=== PATIENT | female | born 1945 | race Caucasian/White ===

== ENCOUNTER → 2016-10-13 | Outpatient (CLI) | payer BC ==
[~2016-10-13] MED LIST: ALBUAER2 INH; CHOL100027 PO; MOME220A INH; MULT-884 PO; OMEG5CAP PO; POLYSOL OPB; [UNRECOGNIZED DRUG - OTHER] OPB
--- NOTE | 2016-10-13 13:44 | DIAGNOSTIC IMAGING REPORT ---
ULTRASOUND LEFT LOWER EXTREMITY VENOUS CLINICAL HISTORY: Left leg pain. COMPARISON STUDY: Bilateral lower extremity venous ultrasound dated 01/08/2016. TECHNIQUE: Real-time, grayscale, and color Doppler sonography of the deep veins of the left lower extremity was performed from the inguinal crease to the calf. Compression and augmentation were utilized. FINDINGS: There is no sonographic evidence of deep venous thrombosis identified in the left lower extremity. The common femoral, superficial femoral, and popliteal veins are patent and normally compressible. The greater saphenous vein and the profunda femoris vein at the junction with the common femoral vein are clear. The visualized calf veins are patent. Superficial venous varicosities are noted in the distal thigh. A small popliteal cyst measures 5.4 x 1.1 x 3.1 cm. IMPRESSION: 1. There is no sonographic evidence of deep venous thrombosis identified in the left lower extremity. 2. A small popiteal cyst is noted. Electronically signed by: Chandler Chan M.D. 10/13/2016 1:42 PM Dictated Date/Time: 10/13/2016 1:41 PM
== END | disposition home or self-care (01) ==
LOC: C.ULTR 13:04
PROVIDERS: ATTEND Family Medicine
DX: M25.562 Pain in left knee (principal); M71.22 Synovial cyst of popliteal space [Baker], left knee

== ENCOUNTER → 2016-10-13 | Outpatient (CLI) | payer BC ==
--- NOTE | 2016-10-13 12:07 | DIAGNOSTIC IMAGING REPORT ---
LEFT KNEE 1 OR 2 VIEWS ROUTINE CLINICAL HISTORY: KNEE PAIN LEFT COMPARISON: None. DISCUSSION: The bones and joint spaces appear intact. There is no evidence of fracture, dislocation or bony disease. There is no evidence for soft tissue swelling. IMPRESSION: Negative study. Electronically signed by: Manolo Hernandez M.D. 10/13/2016 12:05 PM Dictated Date/Time: 10/13/2016 12:05 PM
== END | disposition home or self-care (01) ==
LOC: C.RAD1850 11:48
PROVIDERS: ATTEND Family Medicine
DX: M25.562 Pain in left knee (principal)

== ENCOUNTER → 2017-02-06 | Outpatient (CLI) | payer BC ==
[2017-02-06 09:51] LABS: BLOOD UREA NITROGEN 20 mg/dl (7-18); BUN/CREATININE RATIO 27.1 (10-20); CARBON DIOXIDE 29 mmol/L (21-32); CHLORIDE 107 mmol/L (98-107); CREATININE 0.73 mg/dl (0.60-1.20); GLUCOSE 101 mg/dl (70-99); POTASSIUM 4.2 mmol/L (3.5-5.1); SODIUM 141 mmol/L (136-145)
[2017-02-06 10:01] LABS: CHOLESTEROL 223 mg/dl (0-200); CHOLESTEROL/HDL RATIO 3.3; HDL CHOLESTEROL 68 mg/dl; LDL CHOLESTEROL CALCULATED 127 mg/dl; TRIGLYCERIDES 139 mg/dl (0-150); VERY LOW DENSITY LIPOPROT CALC 28 mg/dl
[2017-02-06 12:26] LABS: ESTIMATED AVERAGE GLUCOSE 114 mg/dl; HA1C FLAG Normal (Normal)
== END | disposition home or self-care (01) ==
LOC: C.LAB1850 08:12
PROVIDERS: ATTEND Internal Medicine
DX: E78.5 Hyperlipidemia, unspecified (principal); R73.01 Impaired fasting glucose

== ENCOUNTER → 2017-03-03 | Outpatient (CLI) | payer BC | END | disposition home or self-care (01) | LOC: C.MAMM 08:54 | PROVIDERS: ATTEND Internal Medicine | DX: M85.89 Other specified disorders of bone density and structure, multiple sites (principal) ==

== ENCOUNTER → 2017-12-15 | Outpatient (CLI) | payer BC ==
--- NOTE | 2017-12-16 15:23 | MAMMOGRAPHY REPORT ---
BILATERAL DIGITAL SCREENING MAMMOGRAM TOMOSYNTHESIS WITH CAD: 12/15/2017 CLINICAL HISTORY: Routine screening. Patient has no complaints. TECHNIQUE: Breast tomosynthesis in addition to standard 2D mammography was performed. Current study was also evaluated with a Computer Aided Detection (CAD) system. COMPARISON: Comparison is made to exams dated: 06/23/2016 mammogram, 03/19/2015 mammogram, 08/18/2013 mammogram, 07/07/2012 mammogram, 03/28/2011 mammogram, and 03/27/2010 mammogram - [facility]. BREAST COMPOSITION: There are scattered areas of fibroglandular density in both breasts. FINDINGS: There are stable asymmetries in the lateral aspect of each breast. Scattered benign-appear ing coarse calcifications. No suspicious mass, architectural distortion or cluster of microcalcifica tions is seen. IMPRESSION: ACR BI-RADS CATEGORY 1: NEGATIVE There is no mammographic evidence of malignancy. A 1 year screening mammogram is recommended. The pa tient will receive written notification of the results. Approximately 10% of breast cancers are not detected with mammography. A negative mammographic report should not delay biopsy if a clinically suggestive mass is present. Billie Cardoza M.D. ay/:12/15/2017 16:02:10 Floor Clerk: Jaki REIS(Karen)(M), [facility] letter sent: Normal 1/2 BI-RADS Code: ACR BI-RADS Category 1: Negative
== END | disposition home or self-care (01) ==
LOC: C.MAMM 11:46
PROVIDERS: ATTEND Obstetrics & Gynecology
DX: Z12.31 Encounter for screening mammogram for malignant neoplasm of breast (principal)

== ENCOUNTER 2020-11-09 14:58 | Observation (INO) ==
--- NOTE | 2020-11-09 16:23 | Emergency Department Note ---
History of Present Illness General Chief complaint: Dizziness Stated complaint: DIZZINESS,WEAKNESS IN LT LEG, REF BY DOC Time Seen by Provider: 11/09/20 16:06 Source: patient History of Present Illness Provider complaint: Dizziness Onset (ago): week(s) Location: head Severity: moderate Pain Consistency: + intermittent Quality: + other (Lightheadedness) Relieved By: + none Exacerbated By: + other (Standing) Associated symptoms: + headaches (Occasional headaches none now) and + weakness (In left leg starting yesterday at 11 AM); no chest pain, no cough, no fever/ch ills, no nausea/vomiting and no shortness of breath This is a 75-year-old female who presents with dizziness starting 7 days ago. The patient describes the dizziness as feeling very lightheaded. Initially 7 days ago she felt so lightheaded that she almost passed out. The next day she felt better but still had the lightheadedness especially when she tries to stand. No associated fever, cough or cold symptoms, chest pain, shortness of breath, abdominal pain, vomiting, diarrhea or urinary symptoms. The patient does state that yesterday at 11 AM she noticed that her left leg felt weak and had the sensation that it was sliding. She states that she still feels weak and feels very off balance when she walks. She denies any numbness or weakness in the other extremities. She has no new numbness in the left lower extremity. She states that she has had foot fractures in the past and has had some numbness to the foot in the past which is unchanged. She denies any change in vision, difficulty swallowing or problems with her speech. She does state that she feels like when she is thinking about something it is true haze. Home Medications Medication Instructions Recorded Confirmed Type albuterol sulfate 90 mcg/actuation 1 puffs INH Q6H PRN 03/16/19 11/09/20 History aerosol inhaler multivitamin 1 tab PO DAILY 03/16/19 11/09/20 History fluticasone propionate [Flonase 1 spray INTRANASAL [id number] PRN 11/09/20 11/09/20 History Allergy Relief] lodoxamide tromethamine 1 drp OPB QID 11/09/20 11/09/20 History mometasone [Asmanex Twisthaler] 1 inh INHALATION DAILY 11/09/20 11/09/20 History Allergies Allergy/AdvReac Type Severity Reaction Status Date / Time adhesive tape Allergy Verified 11/09/20 18:53 codeine AdvReac Mild GI distress Verified 11/09/20 18:53 Past Med/Surg History Medical History (Updated 11/09/20 @ 18:10 by Micah Felton MD) Angioma Fatigue Hyperlipidemia Left knee DJD Osteopenia Postinflammatory hyperpigmentation Solar lentigo Venous insufficiency Vitamin D deficiency Surgical History No significant past surgical history Family History Mother COPD (chronic obstructive pulmonary disease) Breast cancer Father Diabetes Hypertension Coronary heart disease Daughter Malignant melanoma of skin Malignant Melanoma Of The Skin Denies family history of Ovarian cancer Prostate cancer Myocardial infarction Colorectal cancer Social History Smoking Status: Never smoker Second Hand Exposure: Yes; Hx Alcohol Use: Yes Alcohol type: wine Hx Substance Use: No Preferred Language: Uzbek Communication Ability: Effective Visual Impairment: Partially Limited Hearing Ability: Normal Beliefs That Will Affect Care: None marital status: Current Living Situation: Spouse current occupational status: other current occupation: legal collector How many Children do You have: 2 How many Children do You have Comment: 1 boy 1 girl Feels Safe at Home: Yes Childhood Exposure to Second-Hand Smoke: Yes during the past year weight has: remained stable Dental Care, Regularly: Yes Physical Activity Frequency: 5-6 Times per Week Seatbelt Use: always Sunscreen Use: Yes Review of Systems See HPI for pertinent positives & negatives. and A total of 10 systems reviewed and were otherwise negative Physical Exam Vital Signs Vital Signs - 24 hr 11/09/20 15:02 11/09/20 16:57 11/09/20 18:43 Temperature 36.8 C Temperature Source Skin Pulse Rate - Lying 70 Pulse Rate - Sitting 74 Pulse Rate - Standing 76 Pulse Rate 80 Pulse Rate [Bilateral Apical] Respiratory Rate 20 18 Respiratory Effort / Characteristics Non-Labored Spontaneous Non-Labored Respiratory Depth Normal Normal Respiratory Pattern Regular Regular Blood Pressure - Lying 178/72 H Blood Pressure - Sitting 183/82 H Blood Pressure- Standing 159/92 H Blood Pressure 188/89 H Blood Pressure [Left Arm] 196/98 H Blood Pressure Mean 122 Blood Pressure Mean [Left Arm] 130 Blood Pressure Position [Left Arm] Lying Pulse Oximetry 97 98 Oxygen Delivery Method Room Air Room Air Sepsis Recent Fever Within 48 Hours No Sepsis New/Unexplained Change in Mental Status N/A Sepsis Action Taken by Nursing No Action Required 11/09/20 19:05 Temperature Temperature Source Pulse Rate - Lying Pulse Rate - Sitting Pulse Rate - Standing Pulse Rate Pulse Rate [Bilateral Apical] 73 Respiratory Rate 20 Respiratory Effort / Characteristics Respiratory Depth Respiratory Pattern Blood Pressure - Lying Blood Pressure - Sitting Blood Pressure- Standing Blood Pressure Blood Pressure [Left Arm] 196/77 H Blood Pressure Mean Blood Pressure Mean [Left Arm] 116 Blood Pressure Position [Left Arm] Pulse Oximetry 98 Oxygen Delivery Method Sepsis Recent Fever Within 48 Hours Sepsis New/Unexplained Change in Mental Status Sepsis Action Taken by Nursing Constitutional: Vital signs reviewed. Eyes: Pupils are equal round reactive to light. Conjunctiva are noninjected. ENT: Pharynx is clear without erythema or exudate. Mucous membranes are moist. Neck supple without meningeal signs. Respiratory: Clear to auscultation bilaterally. Breath sounds are equal bila terally. Cardiovascular: Regular rate and rhythm. No rubs or gallops. GI: Soft, nondistended and nontender. Bowel sounds are present. Musculoskeletal: No peripheral edema. No lower extremity tenderness. Integumentary: No cyanosis. or jaundice. Neurologic: The patient is awake and alert. Cranial nerves II-XII are intact. Motor is 5 out of 5 all extremities except the left lower extremity which is 4 out of 5. Sensation is intact to light touch all extremities. Normal speech. No pronator drift. No limb ataxia. Gait favoring left leg. Psychiatric: Anxious. Course Administered Medications Discontinued Medications Aspirin (Aspirin Chew 324 Mg) 324 mg PO NOW STA Stop: 11/09/20 18:10 Last Admin: 11/09/20 18:34 Dose: 324 mg Documented by: [id number] Ioversol (Optiray 320 125ml) 119 ml IV ONCE ONE Stop: 11/09/20 17:34 Last Admin: 11/09/20 17:33 Dose: 119 ml Documented by: [id number] Medical Decision Making Differential Diagnosis CVA, TIA, intracranial mass, intracranial hemorrhage, metabolic derangement Medical Records Attestation: I reviewed the patient's medical records. I did perform a limited focused review of portions of the patient's old chart on the electronic medical record. The patient has had no recent pertinent visits to this hospital. Home Medications Current Medication List: was personally reviewed by me Laboratory Data Attestation: I reviewed the patient's lab results. Result diagrams: 11/09/20 16:34 11/09/20 16:34 Lab Results 11/09/20 11/09/20 11/09/20 Range/Units 16:34 16:34 16:34 WBC 7.26 (4.8-10.8) K/uL RBC 4.68 (4.2-5.4) M/uL Hgb 14.2 (12.0-16.0) g/dL Hct 42.5 (37-47) % MCV 90.8 (80-100) fL MCH 30.3 (25-34) pg MCHC 33.4 (32-36) g/dL RDW Std Deviation 46.0 (36.4-46.3) fL RDW Coeff of Alyce 13.9 (11.5-14.5) % Plt Count 272 (130-400) K/uL MPV 9.8 (7.4-10.4) fL Immature Gran % (Auto) 0.3 % Neut % (Auto) 64.5 % Lymph % (Auto) 25.5 % Gregory % (Auto) 7.3 % Eos % (Auto) 2.1 % Baso % (Auto) 0.3 % Neut # (Auto) 4.69 (1.4-6.5) K/uL Lymph # (Auto) 1.85 (1.2-3.4) K/uL Gregory # (Auto) 0.53 (0.11-0.59) K/uL Eos # (Auto) 0.15 (0-0.5) K/uL Baso # (Auto) 0.02 (0-0.2) K/uL Immature Gran # (Auto) 0.02 (0.00-0.02) K/uL PT 9.9 (9.0-12.0) Seconds INR 1.0 (0.9-1.1) APTT 25.5 (21.0-31.0) Seconds PTT Ratio 1.0 Sodium (136-145) mmol/L Potassium (3.5-5.1) mmol/L Chloride (98-107) mmol/L Carbon Dioxide (21-32) mmol/L Anion Gap (3-11) BUN (7-18) mg/dl Creatinine (0.6-1.2) mg/dl Est Cr Clr Drug Dosing ml/min Est GFR ( Amer) Est GFR (Non-Af Amer) BUN/Creatinine Ratio (10-20) Glucose (70-99) mg/dl Calcium (8.5-10.1) mg/dl Magnesium (1.8-2.4) mg/dl Total Bilirubin (0.2-1) mg/dl AST (15-37) U/L ALT (12-78) U/L Alkaline Phosphatase (45-117) U/L Troponin I (0-0.045) ng/ml Total Protein (6.4-8.2) gm/dl Albumin (3.4-5.0) gm/dl Globulin (2.5-4.0) gm/dl Albumin/Globulin Ratio (0.9-2) Urine Color Urine Appearance (Clear) Urine pH (4.5-7.5) Ur Specific [place] (1.000-1.030) Urine Protein (Negative) Urine Glucose (UA) (Negative) Urine Ketones (Negative) Urine Blood (Negative) Urine Nitrite (Negative) Urine Bilirubin (Negative) Urine Urobilinogen (Negative) Ur Leukocyte Esterase (Negative) Urine WBC (Auto) (0-5) /hpf Urine RBC (Auto) (0-4) /hpf U Hyaline Cast (Auto) (0-5) /lpf U Epithel Cells (Auto) (0-5) /lpf Urine Bacteria (Auto) (Negative) COVID-19 Eval Order SARS-CoV-2 (PCR) (Negative) Influenza Type A (PCR) (Neg) Influenza Type B (PCR) (Neg) RSV (RT-PCR) (Neg) Blood Type A Positive Antibody Screen NEGATIVE 11/09/20 11/09/20 11/09/20 Range/Units 16:34 16:50 16:50 WBC (4.8-10.8) K/uL RBC (4.2-5.4) M/uL Hgb (12.0-16.0) g/dL Hct (37-47) % MCV (80-100) fL MCH (25-34) pg MCHC (32-36) g/dL RDW Std Deviation (36.4-46.3) fL RDW Coeff of Alyce (11.5-14.5) % Plt Count (130-400) K/uL MPV (7.4-10.4) fL Immature Gran % (Auto) % Neut % (Auto) % Lymph % (Auto) % Gregory % (Auto) % Eos % (Auto) % Baso % (Auto) % Neut # (Auto) (1.4-6.5) K/uL Lymph # (Auto) (1.2-3.4) K/uL Gregory # (Auto) (0.11-0.59) K/uL Eos # (Auto) (0-0.5) K/uL Baso # (Auto) (0-0.2) K/uL Immature Gran # (Auto) (0.00-0.02) K/uL PT (9.0-12.0) Seconds INR (0.9-1.1) APTT (21.0-31.0) Seconds PTT Ratio Sodium 141 (136-145) mmol/L Potassium 3.8 (3.5-5.1) mmol/L Chloride 107 (98-107) mmol/L Carbon Dioxide 30 (21-32) mmol/L Anion Gap 4.0 (3-11) BUN 20 H (7-18) mg/dl Creatinine 0.71 (0.6-1.2) mg/dl Est Cr Clr Drug Dosing 69.9 ml/min Est GFR ( Amer) 97.9 Est GFR (Non-Af Amer) 84.5 BUN/Creatinine Ratio 27.9 H (10-20) Glucose 88 (70-99) mg/dl Calcium 9.1 (8.5-10.1) mg/dl Magnesium 2.4 (1.8-2.4) mg/dl Total Bilirubin 0.5 (0.2-1) mg/dl AST 29 (15-37) U/L ALT 44 (12-78) U/L Alkaline Phosphatase 63 (45-117) U/L Troponin I 0.021 (0-0.045) ng/ml Total Protein 7.8 (6.4-8.2) gm/dl Albumin 3.9 (3.4-5.0) gm/dl Globulin 3.9 (2.5-4.0) gm/dl Albumin/Globulin Ratio 1.0 (0.9-2) Urine Color Urine Appearance (Clear) Urine pH (4.5-7.5) Ur Specific [place] (1.000-1.030) Urine Protein (Negative) Urine Glucose (UA) (Negative) Urine Ketones (Negative) Urine Blood (Negative) Urine Nitrite (Negative) Urine Bilirubin (Negative) Urine Urobilinogen (Negative) Ur Leukocyte Esterase (Negative) Urine WBC (Auto) (0-5) /hpf Urine RBC (Auto) (0-4) /hpf U Hyaline Cast (Auto) (0-5) /lpf U Epithel Cells (Auto) (0-5) /lpf Urine Bacteria (Auto) (Negative) COVID-19 Eval Order CovFluRsv at [facility] SARS-CoV-2 (PCR) NEGATIVE (Negative) Influenza Type A (PCR) Negative (Neg) Influenza Type B (PCR) Negative (Neg) RSV (RT-PCR) Negative (Neg) Blood Type Antibody Screen 11/09/20 Range/Units 19:02 WBC (4.8-10.8) K/uL RBC (4.2-5.4) M/uL Hgb (12.0-16.0) g/dL Hct (37-47) % MCV (80-100) fL MCH (25-34) pg MCHC (32-36) g/dL RDW Std Deviation (36.4-46.3) fL RDW Coeff of Alyce (11.5-14.5) % Plt Count (130-400) K/uL MPV (7.4-10.4) fL Immature Gran % (Auto) % Neut % (Auto) % Lymph % (Auto) % Gregory % (Auto) % Eos % (Auto) % Baso % (Auto) % Neut # (Auto) (1.4-6.5) K/uL Lymph # (Auto) (1.2-3.4) K/uL Gregory # (Auto) (0.11-0.59) K/uL Eos # (Auto) (0-0.5) K/uL Baso # (Auto) (0-0.2) K/uL Immature Gran # (Auto) (0.00-0.02) K/uL PT (9.0-12.0) Seconds INR (0.9-1.1) APTT (21.0-31.0) Seconds PTT Ratio Sodium (136-145) mmol/L Potassium (3.5-5.1) mmol/L Chloride (98-107) mmol/L Carbon Dioxide (21-32) mmol/L Anion Gap (3-11) BUN (7-18) mg/dl Creatinine (0.6-1.2) mg/dl Est Cr Clr Drug Dosing ml/min Est GFR ( Amer) Est GFR (Non-Af Amer) BUN/Creatinine Ratio (10-20) Glucose (70-99) mg/dl Calcium (8.5-10.1) mg/dl Magnesium (1.8-2.4) mg/dl Total Bilirubin (0.2-1) mg/dl AST (15-37) U/L ALT (12-78) U/L Alkaline Phosphatase (45-117) U/L Troponin I (0-0.045) ng/ml Total Protein (6.4-8.2) gm/dl Albumin (3.4-5.0) gm/dl Globulin (2.5-4.0) gm/dl Albumin/Globulin Ratio (0.9-2) Urine Color Yellow Urine Appearance Clear (Clear) Urine pH 7.0 (4.5-7.5) Ur Specific [place] 1.038 H (1.000-1.030) Urine Protein Negative (Negative) Urine Glucose (UA) Negative (Negative) Urine Ketones Negative (Negative) Urine Blood Negative (Negative) Urine Nitrite Negative (Negative) Urine Bilirubin Negative (Negative) Urine Urobilinogen Negative (Negative) Ur Leukocyte Esterase Trace H (Negative) Urine WBC (Auto) 1-5 (0-5) /hpf Urine RBC (Auto) 0-4 (0-4) /hpf U Hyaline Cast (Auto) 1-5 (0-5) /lpf U Epithel Cells (Auto) >30 H (0-5) /lpf Urine Bacteria (Auto) Negative (Negative) COVID-19 Eval Order SARS-CoV-2 (PCR) (Negative) Influenza Type A (PCR) (Neg) Influenza Type B (PCR) (Neg) RSV (RT-PCR) (Neg) Blood Type Antibody Screen Imaging Data Radiologist's Impression: Chest X-Ray 11/09/20 16:18 XR chest 1V portable HISTORY: Stroke Like Symptoms COMPARISON: None. FINDINGS: The lungs are clear. Cardiac silhouette is normal in size. No pleural effusions. No pneumothorax. IMPRESSION: No acute process. ACT 112: Negative or not required by law. Electronically signed by: Andrea Anderson M.D. 11/09/2020 4:[address] 11/09/20 16:18 CT OF THE HEAD WITHOUT CONTRAST CLINICAL HISTORY: Left leg weakness. COMPARISON STUDY: No previous studies for comparison. CT DOSE: 1061.37 mGy.cm TECHNIQUE: Helical axial images of the head were obtained without IV contrast. Automated exposure control was utilized for the study. A dose lowering technique was utilized adhering to the principles of ALARA. FINDINGS: No acute intracranial hemorrhage, midline shift or mass effect is present. The ventricular system is unremarkable. The basal cisterns are patent. No extra-axial collections are present. There are no findings to suggest acute dural sinus thrombosis or acute territorial infarct. No significant calvarial abnormalities are present. Visualized portions of the sinuses and mastoid air cells are clear. IMPRESSION: No acute intracranial findings. ACT 112: Negative or not required by law. Electronically signed by: Reyes Herron M.D. 11/09/2020 5:47 PM Head CTA 11/09/20 16:18 CTA ANGIOGRAPHY OF THE HEAD CLINICAL HISTORY: Stroke Like Symptoms COMPARISON STUDY: No previous studies for comparison. TECHNIQUE: Helical axial images of the head were obtained following uneventful intravenous administration of 119 cc of Optiray 320. Sagittal and coronal reconstructions were viewed as well as maximal intensity projections on an independent 3-D workstation. Automated exposure control was utilized for the study. A dose lowering technique was utilized adhering to the principles of ALARA. FINDINGS: The bilateral M1, M2, A1 and A2 segments are patent. No central vessel occlusion is noted. The posterior circulation is intact. Note is made of a tiny outpouching arising from the inferior aspect of the right supraclinoid ICA. This favors a tiny aneurysm that measures 1.3 mm. There are no additional intracranial aneurysms. There is no dissection within the intracranial vessels. IMPRESSION: 1. No central vessel occlusion. 2. 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 This is of doubtful significance. ACT 112: Negative or not required by law. Electronically signed by: Reyes Herron M.D. 11/09/2020 5:58 PM Neck CTA 11/09/20 16:18 CT ANGIOGRAPHY OF THE NECK WITH CONTRAST CLINICAL HISTORY: Stroke Like Symptoms COMPARISON STUDY: No previous studies for comparison. Technique: CT angiography of the carotid and vertebral arteries was obtained using OptiraMusic Connect 320 IV and 3D reconstruction on an independent workstation. NASCET criteria was utilized. Automated exposure control was utilized for the study. A dose lowering technique was utilized adhering to the principles of ALARA. Findings: Lung apices are clear. There is no cervical lymphadenopathy. Epiglottis is normal. Multilevel degenerative changes within the cervical spine are noted. No acute fracture within the cervical spine is noted. The bilateral common carotid arteries are patent. There is minimal plaque within the bilateral carotid bifurcations without significant stenosis. There is no dissection within the neck vessels. There is mild multifocal irregularity of the bilateral cervical internal carotid arteries without significant stenosis. A few tiny outpouchings within the bilateral cervical internal carotid arteries are noted. Bilateral vertebral arteries are patent. CTA of the head will be reported separately. IMPRESSION: 1. No stenosis or dissection within the major vessels of the neck. 2. Mild multifocal irregularity of the bilateral cervical internal carotid arteries with tiny outpouchings. The findings are likely due to atherosclerosis. Fibromuscular dysplasia could appear similar although is considered less likely. ACT 112: Negative or not required by law. Electronically signed by: Reyes Herron M.D. 11/09/2020 5:53 PM ECG Data Attestation: I personally reviewed and interpreted this ECG as follows: Indication: + other (Strokelike symptoms and near syncope) Rate (beats per minute): 70 Rhythm: + normal sinus ECG [place]: + Normal ECG ST segments: no ST elevation ECG Findings: + LVH; no PVCs MDM Narrative I did evaluate the patient as noted above. The patient is presenting with lightheadedness for about a week with accompanying left leg weakness starting yesterday. She is outside of the TPA window but her symptoms are concerning for a possible stroke. IV access was established. I did place an order for continuous cardiac monitoring. The monitor showed normal sinus rhythm at a rate of 80 bpm. I did order and personally review the patient's 12-lead EKG as described above. I did order and personally reviewed the images of the patient's chest x-ray as described above. I did order a urine analysis. I did order and review the patient's blood work as noted in the electronic medical record. CBC does not demonstrate anemia, leukocytosis or thrombocytopenia. Electrolytes are unremarkable. Troponin is negative. I did order a CT of the head and CT angiogram of the head and neck. I did review the images myself as well as the radiology report as described above. There is no evidence of acute intracranial abnormality. She does have irregularities within the bilateral cervical internal carotid arteries concerning for atherosclerosis versus fibrom uscular dysplasia. Incidentally there is a 1.3 mm right supraclinoid ICA aneurysm. I did discuss the test results with the patient. I did recommend hospitalization for further care and evaluation including MRI of the brain. I did treat the patient with aspirin 325 mg p.o. A Covid screening test was obtained. I did discuss case with hospitalist and community case manager. Impression & Plan Left leg weakness, Near syncope, Aneurysm, cerebral Discharge Plan Visit Data Chief Complaint: Dizziness Stated Complaint: DIZZINESS,WEAKNESS IN LT LEG, REF BY DOC ED Provider: Micah Felton Discharge Problem: Left leg weakness, Near syncope, Aneurysm, cerebral Patient Disposition: Admitted As Inpatient Discharge Instructions Interventions: ED Discharge Assessment Last Done: 11/09/20 20:50
--- NOTE | 2020-11-09 16:44 | XRay Report ---
XR chest 1V portable HISTORY: Stroke Like Symptoms COMPARISON: None. FINDINGS: The lungs are clear. Cardiac silhouette is normal in size. No pleural effusions. No pneumot horax. IMPRESSION: No acute process. ACT 112: Negative or not required by law. Electronically signed by: Andrea Anderson M.D. 11/09/2020 4:42 PM
[2020-11-09 16:49] LABS: Basophils # (auto) 0.02 K/uL (0-0.2); Basophils % (auto) 0.3 %; Eosinophils # (auto) 0.15 K/uL (0-0.5); Eosinophils % (auto) 2.1 %; Hematocrit (blood only) 42.5 % (37-47); Hemoglobin 14.2 g/dL (12.0-16.0); Immature Granulocytes # (auto) 0.02 K/uL (0.00-0.02); Immature Granulocytes % (auto) 0.3 %; Lymphocytes # (auto) 1.85 K/uL (1.2-3.4); Lymphocytes % (auto) 25.5 %; Mean Corpuscular Hemoglobin 30.3 pg (25-34); Mean Corpuscular Hgb Conc 33.4 g/dL (32-36); Mean Corpuscular Volume 90.8 fL (80-100); Mean Platelet Volume 9.8 fL (7.4-10.4); Monocytes # (auto) 0.53 K/uL (0.11-0.59); Monocytes % (auto) 7.3 %; Neutrophils # (auto) 4.69 K/uL (1.4-6.5); Neutrophils % (auto) 64.5 %; Platelet Count 272 K/uL (130-400); RDW Coefficient of Variation 13.9 % (11.5-14.5); Red Blood Count 4.68 M/uL (4.2-5.4); White Blood Count 7.26 K/uL (4.8-10.8)
[2020-11-09 16:59] LABS: Partial Thromboplastin Time 25.5 Seconds (21.0-31.0); Prothrombin Time 9.9 Seconds (9.0-12.0)
[2020-11-09 17:15] LABS: Albumin Level 3.9 gm/dl (3.4-5.0); BUN Creatinine Ratio 27.9 (10-20); Calcium 9.1 mg/dl (8.5-10.1); Creatinine Clr Calc Pharmacy 69.9 ml/min; Est GFR (African American) 97.9; Est GFR (Non-African American) 84.5; Magnesium 2.4 mg/dl (1.8-2.4); Potassium 3.8 mmol/L (3.5-5.1)
[2020-11-09 17:20] LABS: Bilirubin,Total 0.5 mg/dl (0.2-1); Globulin 3.9 gm/dl (2.5-4.0); Total Protein 7.8 gm/dl (6.4-8.2); Troponin I 0.021 ng/ml (0-0.045)
[2020-11-09] MEDS ORDERED: OPTIRAY 320 125ml IV ONE (17:33)
--- NOTE | 2020-11-09 17:48 | CT Scan Report ---
CT OF THE HEAD WITHOUT CONTRAST CLINICAL HISTORY: Left leg weakness. COMPARISON STUDY: No previous studies for comparison. CT DOSE: 1061.37 mGy.cm TECHNIQUE: Helical axial images of the head were obtained without IV contrast. Automated exposure con trol was utilized for the study. A dose lowering technique was utilized adhering to the principles o f ALARA. FINDINGS: No acute intracranial hemorrhage, midline shift or mass effect is present. The ventricular system is unremarkable. The basal cisterns are patent. No extra-axial collections are present. There are no findings to suggest acute dural sinus thrombosis or acute territorial infarct. No significant calvarial abnormalities are present. Visualized portions of the sinuses and mastoid air cells are rosey ar. IMPRESSION: No acute intracranial findings. ACT 112: Negative or not required by law. Electronically signed by: Reyes Herron M.D. 11/09/2020 5:47 PM
--- NOTE | 2020-11-09 17:55 | CT Scan Report ---
CT ANGIOGRAPHY OF THE NECK WITH CONTRAST CLINICAL HISTORY: Stroke Like Symptoms COMPARISON STUDY: No previous studies for comparison. Technique: CT angiography of the carotid and vertebral arteries was obtained using [employer] 320 IV and 3D reconstruction on an independent workstation. NASCET criteria was utilized. Automated exposure c ontrol was utilized for the study. A dose lowering technique was utilized adhering to the principles of ALARA. Findings: Lung apices are clear. There is no cervical lymphadenopathy. Epiglottis is normal. Multilev el degenerative changes within the cervical spine are noted. No acute fracture within the cervical sp ine is noted. The bilateral common carotid arteries are patent. There is minimal plaque within the bi lateral carotid bifurcations without significant stenosis. There is no dissection within the neck ves sels. There is mild multifocal irregularity of the bilateral cervical internal carotid arteries witho ut significant stenosis. A few tiny outpouchings within the bilateral cervical internal carotid arter ies are noted. Bilateral vertebral arteries are patent. CTA of the head will be reported separately. IMPRESSION: 1. No stenosis or dissection within the major vessels of the neck. 2. Mild multifocal irregularity of the bilateral cervical internal carotid arteries with tiny outpouc hings. The findings are likely due to atherosclerosis. Fibromuscular dysplasia could appear similar a lthough is considered less likely. ACT 112: Negative or not required by law. Electronically signed by: Reyes Herron M.D. 11/09/2020 5:53 PM
--- NOTE | 2020-11-09 17:59 | CT Scan Report ---
CTA ANGIOGRAPHY OF THE HEAD CLINICAL HISTORY: Stroke Like Symptoms COMPARISON STUDY: No previous studies for comparison. TECHNIQUE: Helical axial images of the head were obtained following uneventful intravenous administr ation of 119 cc of Optiray 320. Sagittal and coronal reconstructions were viewed as well as maximal i ntensity projections on an independent 3-D workstation. Automated exposure control was utilized for the study. A dose lowering technique was utilized adhering to the principles of ALARA. FINDINGS: The bilateral M1, M2, A1 and A2 segments are patent. No central vessel occlusion is noted. The posterior circulation is intact. Note is made of a tiny outpouching arising from the inferior asp ect of the right supraclinoid ICA. This favors a tiny aneurysm that measures 1.3 mm. There are no add itional intracranial aneurysms. There is no dissection within the intracranial vessels. IMPRESSION: 1. No central vessel occlusion. 2. 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 This is of doubtful significance. ACT 112: Negative or not required by law. Electronically signed by: Reyes Herron M.D. 11/09/2020 5:58 PM
[2020-11-09] MEDS ORDERED: ASPIRIN CHEW 324 MG PO STA (18:09)
[2020-11-09 18:17] LABS: Influenza A virus by PCR Negative (Neg); Influenza B virus by PCR Negative (Neg); RSV by PCR Negative (Neg); SARS CoV2 RNA(COVID-19) InHosp NEGATIVE (Negative)
[2020-11-09 19:28] LABS: Appearance Urine Clear (Clear); Bacteria Urine Automated Negative (Negative); Bilirubin Urine Negative (Negative); Blood Urine Negative (Negative); Color Urine Yellow; Epithelial Cell Urine Auto >30 /lpf (0-5); Glucose Urine UA Negative (Negative); Ketones Urine Negative (Negative); Leukocyte Esterase Urine Trace (Negative); Nitrite Urine Negative (Negative); Protein Urine Negative (Negative); RBC Urine Automated 0-4 /hpf (0-4); Specific Gravity Urine 1.038 (1.000-1.030); Urobilinogen Urine Negative (Negative)
--- NOTE | 2020-11-09 20:02 | History & Physical Report ---
Date of Service November 09, 2020 Assessment & Plan (1) Transient weakness of left lower extremity: Physical examination normal in the emergency department this evening. 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 MRI brain without contrast Consult PT/OT/neurology Present on Admission?: Yes (2) Near syncope: Near syncope/history of hypoglycemia patient's initial symptoms on November 01 where she nearly passed out, where after a long time since she had breakfast, and most likely hypoglycemia related. Present on Admission?: Yes (3) Aneurysm, cerebral: Follow on routine testing. Present on Admission?: Yes (4) Extrinsic asthma: Extrinsic asthma/allergic rhinitis- Continue usual medications of Flonase allergy relief and Asmanex Twisthaler Hold as needed albuterol HFA Present on Admission?: Yes (5) Allergic rhinitis: See above Present on Admission?: Yes (6) Chronic venous insufficiency: By her history, chronic venous insufficiency has been worsened on her left side due to history of 3 previous mechanical left foot fractures. She denies any back pain or back injuries. Her symptoms of left lower extremity abnormal sensation or feeling of floating may be more of a local process if MRI brain is normal. Patient has recently undergone procedures to treat venous insufficiency via vascular surgery intervention Present on Admission?: Yes History of Present Illness Chief Complaint: Patient presents to the emergency department with complaints of dizziness, lightheadedness, recent left lower extremity weakness and abnormal sensation. Primary Care Provider: Torey López MD The patient is a 75-year-old female with a past medical history including left knee DJD, extrinsic asthma, allergic rhinitis, angioma, hyperlipidemia, osteopenia, solar lentigo, venous insufficiency, vitamin D deficiency and broken left foot x3. She reports her symptoms initially began on November 01 where she initially woke up had a light breakfast, was busy, and then around 2:30 in the afternoon she became lightheadedness and felt she almost would pass out she barely made it home. The symptoms decreased somewhat on November 02, but were still present somewhat at that time. On November 08 the patient had a return of dizziness and lightheadedness, but this time it became more constant. It was on this date that she also the first time experienced left lower extremity sensation of gliding, and a sense of feeling of floating. She reports her symptoms have improved somewhat today, 11/09, but has felt lightheaded all day. On 11/08, she did get allergy shots in both arms, and her symptoms did worsen significantly shortly after that. She presents to the emergency department today, at the referral from her PCPs office. Allergies Allergy/AdvReac Type Severity Reaction Status Date / Time adhesive tape Allergy Verified 11/09/20 18:53 codeine AdvReac Mild GI distress Verified 11/09/20 18:53 Home Medications Medication Instructions Recorded Confirmed Type albuterol sulfate 90 mcg/actuation 1 puffs INH Q6H PRN 03/16/19 11/09/20 History aerosol inhaler multivitamin 1 tab PO DAILY 03/16/19 11/09/20 History fluticasone propionate [Flonase 1 spray INTRANASAL [id number] PRN 11/09/20 11/09/20 History Allergy Relief] lodoxamide tromethamine 1 drp OPB QID 11/09/20 11/09/20 History mometasone [Asmanex Twisthaler] 1 inh INHALATION DAILY 11/09/20 11/09/20 History Past Med/Surg History Medical History (Updated 11/10/20 @ 04:15 by Juanito Dixon MD) Angioma Fatigue Hyperlipidemia Left knee DJD Osteopenia Postinflammatory hyperpigmentation Solar lentigo Venous insufficiency Vitamin D deficiency Surgical History No significant past surgical history Family History Mother COPD (chronic obstructive pulmonary disease) Breast cancer Father Diabetes Hypertension Coronary heart disease Daughter Malignant melanoma of skin Malignant Melanoma Of The Skin Denies family history of Ovarian cancer Prostate cancer Myocardial infarction Colorectal cancer Social History Smoking Status: Never smoker Second Hand Exposure: Yes; Hx Alcohol Use: Yes Alcohol type: wine Hx Substance Use: No Preferred Language: Nauruan Communication Ability: Effective Visual Impairment: Partially Limited Hearing Ability: Normal Beliefs That Will Affect Care: None marital status: Current Living Situation: Spouse Current Living Situation Comment: , independent at home current occupational status: other current occupation: trash collector How many Children do You have: 2 How many Children do You have Comment: 1 boy 1 girl Other Information That Helps Us Care for You: No Feels Safe at Home: Yes Safety Concerns: Feels Safe At This Time Childhood Exposure to Second-Hand Smoke: Yes during the past year weight has: remained stable Dental Care, Regularly: Yes Physical Activity Frequency: 5-6 Times per Week Seatbelt Use: always Sunscreen Use: Yes Assistive Devices: None Review of Systems Review of Systems: The patient denies chest pain, palpitations, shortness of breath, dyspnea on exertion, cough, sore throat, fevers, chills, sweats, nausea, vomiting, diarrhea , constipation, abdominal pain, pelvic pain, blood in urine or stool, dysuria, urinary frequency or urgency, memory loss, loss of consciousness, rash, abnormal bruising or bleeding, imbalance, focal or generalized weakness, numbness or tingling in arms, generalized arthralgias or myalgias, back or neck pain, or night sweats. The review of systems is otherwise negative other than for that already noted above, and at least 10 systems have been reviewed. Physical Exam Physical Exam: The patient is awake, alert and oriented 3, well developed and well nourished, normocephalic and atraumatic, lying in bed and in no acute distress. HEENT--PERRL, EOMI, mucous membranes and oropharynx normal. Neck--supple. No JVD. No bruits. Thyroid normal, trachea midline, no adenopathy. Heart--normal S1 and S2. No murmurs, rubs or gallops. Lungs--clear bilaterally, no respiratory distress, no accessory muscle use. Abdomen--normal bowel sounds and soft. Nontender. Nondistended, no hernias or masses, no organomegaly. Extremities--no cyanosis or clubbing. No edema. There are good distal pulses b/l. Dermatologic--normal skin turgor, normal color, no abnormal lymph nodes, no rash. Neurologic--cranial nerves II through XII grossly intact. Rheumatologic--normal range of motion. Psychiatric--normal affect. Results & Data Results & Data ([facility]) Vital Signs (Past 12 Hours) Vital Signs Temp Pulse Pulse Resp BP BP Pulse Ox 11/09/20 19:05 73 20 196/77 H 98 11/09/20 18:43 18 196/98 H 98 11/09/20 15:02 98.2 F 80 20 188/89 H 97 Laboratory Results Laboratory Results WBC 7.26 K/uL (4.8-10.8) 11/09/20 16:34 RBC 4.68 M/uL (4.2-5.4) 11/09/20 16:34 Hgb 14.2 g/dL (12.0-16.0) 11/09/20 16:34 Hct 42.5 % (37-47) 11/09/20 16:34 MCV 90.8 fL (80-100) 11/09/20 16:34 MCH 30.3 pg (25-34) 11/09/20 16:34 MCHC 33.4 g/dL (32-36) 11/09/20 16:34 RDW Std Deviation 46.0 fL (36.4-46.3) 11/09/20 16:34 RDW Coeff of Alyce 13.9 % (11.5-14.5) 11/09/20 16:34 Plt Count 272 K/uL (130-400) 11/09/20 16:34 MPV 9.8 fL (7.4-10.4) 11/09/20 16:34 Immature Gran % (Auto) 0.3 % 11/09/20 16:34 Neut % (Auto) 64.5 % 11/09/20 16:34 Lymph % (Auto) 25.5 % 11/09/20 16:34 Sauk % (Auto) 7.3 % 11/09/20 16:34 Eos % (Auto) 2.1 % 11/09/20 16:34 Baso % (Auto) 0.3 % 11/09/20 16:34 Neut # (Auto) 4.69 K/uL (1.4-6.5) 11/09/20 16:34 Lymph # (Auto) 1.85 K/uL (1.2-3.4) 11/09/20 16:34 Sauk # (Auto) 0.53 K/uL (0.11-0.59) 11/09/20 16:34 Eos # (Auto) 0.15 K/uL (0-0.5) 11/09/20 16:34 Baso # (Auto) 0.02 K/uL (0-0.2) 11/09/20 16:34 Immature Gran # (Auto) 0.02 K/uL (0.00-0.02) 11/09/20 16:34 PT 9.9 Seconds (9.0-12.0) 11/09/20 16:34 INR 1.0 (0.9-1.1) 11/09/20 16:34 APTT 25.5 Seconds (21.0-31.0) 11/09/20 16:34 PTT Ratio 1.0 11/09/20 16:34 Sodium 141 mmol/L (136-145) 11/09/20 16:34 Potassium 3.8 mmol/L (3.5-5.1) 11/09/20 16:34 Chloride 107 mmol/L (98-107) 11/09/20 16:34 Carbon Dioxide 30 mmol/L (21-32) 11/09/20 16:34 Anion Gap 4.0 (3-11) 11/09/20 16:34 BUN 20 mg/dl (7-18) H 11/09/20 16:34 Creatinine 0.71 mg/dl (0.6-1.2) 11/09/20 16:34 Est Cr Clr Drug Dosing 69.9 ml/min 11/09/20 16:34 Est GFR ( Amer) 97.9 11/09/20 16:34 Est GFR (Non-Af Amer) 84.5 11/09/20 16:34 BUN/Creatinine Ratio 27.9 (10-20) H 11/09/20 16:34 Glucose 88 mg/dl (70-99) 11/09/20 16:34 Calcium 9.1 mg/dl (8.5-10.1) 11/09/20 16:34 Magnesium 2.4 mg/dl (1.8-2.4) 11/09/20 16:34 Total Bilirubin 0.5 mg/dl (0.2-1) 11/09/20 16:34 AST 29 U/L (15-37) 11/09/20 16:34 ALT 44 U/L (12-78) 11/09/20 16:34 Alkaline Phosphatase 63 U/L (45-117) 11/09/20 16:34 Troponin I 0.021 ng/ml (0-0.045) 11/09/20 16:34 Total Protein 7.8 gm/dl (6.4-8.2) 11/09/20 16:34 Albumin 3.9 gm/dl (3.4-5.0) 11/09/20 16:34 Globulin 3.9 gm/dl (2.5-4.0) 11/09/20 16:34 Albumin/Globulin Ratio 1.0 (0.9-2) 11/09/20 16:34 Urine Color Yellow 11/09/20 19:02 Urine Appearance Clear (Clear) 11/09/20 19:02 Urine pH 7.0 (4.5-7.5) 11/09/20 19:02 Ur Specific [place] 1.038 (1.000-1.030) H 11/09/20 19:02 Urine Protein Negative (Negative) 11/09/20 19:02 Urine Glucose (UA) Negative (Negative) 11/09/20 19:02 Urine Ketones Negative (Negative) 11/09/20 19:02 Urine Blood Negative (Negative) 11/09/20 19:02 Urine Nitrite Negative (Negative) 11/09/20 19:02 Urine Bilirubin Negative (Negative) 11/09/20 19:02 Urine Urobilinogen Negative (Negative) 11/09/20 19:02 Ur Leukocyte Esterase Trace (Negative) H 11/09/20 19:02 Urine WBC (Auto) 1-5 /hpf (0-5) 11/09/20 19:02 Urine RBC (Auto) 0-4 /hpf (0-4) 11/09/20 19:02 U Hyaline Cast (Auto) 1-5 /lpf (0-5) 11/09/20 19:02 U Epithel Cells (Auto) >30 /lpf (0-5) H 11/09/20 19:02 Urine Bacteria (Auto) Negative (Negative) 11/09/20 19:02 COVID-19 Eval Order CovFluRsv at [facility] 11/09/20 16:50 SARS-CoV-2 (PCR) NEGATIVE (Negative) 11/09/20 16:50 Influenza Type A (PCR) Negative (Neg) 11/09/20 16:50 Influenza Type B (PCR) Negative (Neg) 11/09/20 16:50 RSV (RT-PCR) Negative (Neg) 11/09/20 16:50 Blood Type A Positive 11/09/20 16:34 Antibody Screen NEGATIVE 11/09/20 16:34 Impressions Chest X-Ray 11/09/20 16:18 XR chest 1V portable HISTORY: Stroke Like Symptoms COMPARISON: None. FINDINGS: The lungs are clear. Cardiac silhouette is normal in size. No pleural effusions. No pneumothorax. IMPRESSION: No acute process. ACT 112: Negative or not required by law. Electronically signed by: Andrea Anderson M.D. 11/09/2020 4:[address] 11/09/20 16:18 CT OF THE HEAD WITHOUT CONTRAST CLINICAL HISTORY: Left leg weakness. COMPARISON STUDY: No previous studies for comparison. CT DOSE: 1061.37 mGy.cm TECHNIQUE: Helical axial images of the head were obtained without IV contrast. Automated exposure control was utilized for the study. A dose lowering technique was utilized adhering to the principles of ALARA. FINDINGS: No acute intracranial hemorrhage, midline shift or mass effect is present. The ventricular system is unremarkable. The basal cisterns are patent. No extra-axial collections are present. There are no findings to suggest acute dural sinus thrombosis or acute territorial infarct. No significant calvarial abnormalities are present. Visualized portions of the sinuses and mastoid air cells are clear. IMPRESSION: No acute intracranial findings. ACT 112: Negative or not required by law. Electronically signed by: Reyes Herron M.D. 11/09/2020 5:47 PM Head CTA 11/09/20 16:18 CTA ANGIOGRAPHY OF THE HEAD CLINICAL HISTORY: Stroke Like Symptoms COMPARISON STUDY: No previous studies for comparison. TECHNIQUE: Helical axial images of the head were obtained following uneventful intravenous administration of 119 cc of Optiray 320. Sagittal and coronal reconstructions were viewed as well as maximal intensity projections on an independent 3-D workstation. Automated exposure control was utilized for the study. A dose lowering technique was utilized adhering to the principles of ALARA. FINDINGS: The bilateral M1, M2, A1 and A2 segments are patent. No central vessel occlusion is noted. The posterior circulation is intact. Note is made of a tiny outpouching arising from the inferior aspect of the right supraclinoid ICA. This favors a tiny aneurysm that measures 1.3 mm. There are no additional intracranial aneurysms. There is no dissection within the intracranial vessels. IMPRESSION: 1. No central vessel occlusion. 2. 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 This is of doubtful significance. ACT 112: Negative or not required by law. Electronically signed by: Reyes Herron M.D. 11/09/2020 5:58 PM Neck CTA 11/09/20 16:18 CT ANGIOGRAPHY OF THE NECK WITH CONTRAST CLINICAL HISTORY: Stroke Like Symptoms COMPARISON STUDY: No previous studies for comparison. Technique: CT angiography of the carotid and vertebral arteries was obtained using [employer] 320 IV and 3D reconstruction on an independent workstation. NASCET criteria was utilized. Automated exposure control was utilized for the study. A dose lowering technique was utilized adhering to the principles of ALARA. Findings: Lung apices are clear. There is no cervical lymphadenopathy. Epiglottis is normal. Multilevel degenerative changes within the cervical spine are noted. No acute fracture within the cervical spine is noted. The bilateral common carotid arteries are patent. There is minimal plaque within the bilateral carotid bifurcations without significant stenosis. There is no dissection within the neck vessels. There is mild multifocal irregularity of the bilateral cervical internal carotid arteries without significant stenosis. A few tiny outpouchings within the bilateral cervical internal carotid arteries are noted. Bilateral vertebral arteries are patent. CTA of the head will be reported separately. IMPRESSION: 1. No stenosis or dissection within the major vessels of the neck. 2. Mild multifocal irregularity of the bilateral cervical internal carotid arteries with tiny outpouchings. The findings are likely due to atherosclerosis. Fibromuscular dysplasia could appear similar although is considered less likely. ACT 112: Negative or not required by law. Electronically signed by: Reyes Herron M.D. 11/09/2020 5:53 PM Code Status & VTE Plan Code Status Full code VTE Prophylaxis Plan VTE Prophylaxis will be ordered: Yes PG Care Time/CCT Total # of Minutes Spent Total Time Spent with Patient: Total time spent is greater than 50% in coordination of care (as documented) at patient's floor/unit and/or counseling patient: Coding Level of Care Code 10217 OBS Care - Level 3 Diagnoses Transient weakness of left lower extremity R29.898 Near syncope R55 Aneurysm, cerebral I67.1 Extrinsic asthma J45.909 Allergic rhinitis J30.9 Chronic venous insufficiency I87.2
[2020-11-09] MEDS ORDERED: ACETAMINOPHEN 325 MG TAB PO PRN (21:12)
[2020-11-09] MEDS ORDERED: PHARMACIST DISCHARGE MED REC CONSULT PRN (21:12)
[2020-11-09] MEDS ORDERED: ENOXAPARIN INJ 40 MG/0.4 ML SYR SQ SCH (22:00)
[2020-11-09] MEDS ORDERED: LORazepam 0.5 MG/1 ML VIAL IV PRN (22:02)
[2020-11-09] MEDS: ATORVASTATIN 40 MG TAB PO SCH (22:12)
[2020-11-10 06:21] LABS: Basophils # (auto) 0.02 K/uL (0-0.2); Basophils % (auto) 0.3 %; Eosinophils # (auto) 0.17 K/uL (0-0.5); Eosinophils % (auto) 2.7 %; Hematocrit (blood only) 40.5 % (37-47); Hemoglobin 13.4 g/dL (12.0-16.0); Immature Granulocytes # (auto) 0.01 K/uL (0.00-0.02); Immature Granulocytes % (auto) 0.2 %; Lymphocytes # (auto) 1.78 K/uL (1.2-3.4); Lymphocytes % (auto) 28.8 %; Mean Corpuscular Hgb Conc 33.1 g/dL (32-36); Mean Corpuscular Volume 90.6 fL (80-100); Mean Platelet Volume 9.8 fL (7.4-10.4); Monocytes # (auto) 0.49 K/uL (0.11-0.59); Monocytes % (auto) 7.9 %; Neutrophils # (auto) 3.72 K/uL (1.4-6.5); Neutrophils % (auto) 60.1 %; Platelet Count 265 K/uL (130-400); RDW Standard Deviation 45.8 fL (36.4-46.3); Red Blood Count 4.47 M/uL (4.2-5.4); White Blood Count 6.19 K/uL (4.8-10.8)
[2020-11-10 06:59] LABS: BUN Creatinine Ratio 24.9 (10-20); Blood Urea Nitrogen 17 mg/dl (7-18); Calcium 8.9 mg/dl (8.5-10.1); Carbon Dioxide 28 mmol/L (21-32); Chloride 109 mmol/L (98-107); Cholesterol 241 mg/dl (0-200); Est GFR (African American) 100.6; Est GFR (Non-African American) 86.8; Glucose 89 mg/dl (70-99); Potassium 3.8 mmol/L (3.5-5.1); Sodium 142 mmol/L (136-145); Triglycerides 114 mg/dl (0-150); VLDL Cholesterol 23 mg/dl
[2020-11-10 07:03] LABS: Chol HDL Ratio 3; HDL Cholesterol 72 mg/dl; LDL Cholesterol Calculated 146 mg/dl; Troponin I < 0.015 ng/ml (0-0.045)
[2020-11-10 07:18] LABS: Estimated Average Glucose 111 mg/dl; Hemoglobin A1C 5.5 % (4.5-5.6)
--- NOTE | 2020-11-10 07:37 | Electrocardiogram Report ---
Test Reason : Blood Pressure : / mmHG Vent. Rate : 070 BPM Atrial Rate : 070 BPM P-R Int : 166 ms QRS Dur : 082 ms QT Int : 422 ms P-R-T Axes : 063 006 023 degrees QTc Int : 455 ms Poor data quality, interpretation may be adversely affected Normal sinus rhythm Minimal voltage criteria for LVH, may be normal variant Borderline ECG When compared with ECG of 21-NOV-2014 11:12, No significant change was found Confirmed by Joe Barfield ([id number]) on 11/10/2020 7:37:19 AM Referred By: Torey López Confirmed By:Joe Barfield
--- NOTE | 2020-11-10 07:57 | Neurology Consultation ---
Date of Consultation November 10, 2020 Assessment & Plan (1) Transient weakness of left lower extremity: (2) Near syncope: (3) Hypertension: (4) Hyperlipidemia: This patient has had significant lightheadedness ( near syncope) for 8 or 9 days since November 01. She has not actually passed out and she does not have vertigo symptoms. CT angiography did not reveal any lesions that would lead to lightheadedness and she is not orthostatic. I suspect the general sense of lightheadedness and "fogginess" of thinking is most related to hypertension. She has no focal neurologic signs, meningeal signs or encephalopathy currently Patient had some transient weakness of the left lower extremity distally starting November 08 seen November 09 in the emergency room. She does not have this currently and is quite strong. Overall, I cannot exclude a small stroke , but this is consistent with a TIA. Her risk factors for small vessel ischemic disease include hypertension, dyslipidemia, and age / genetics Recommendations: 1. continue 81 milligram aspirin tablet daily to prevent small vessel ischemic disease 2. Needs MRI of the brain to evaluate stroke versus TIA and general state of chronic cerebral disease. 3. Echocardiogram pending. 4. Treat blood pressure to control for a mean arterial pressure of approximately 95-100. 5. The patient would be a statin candidate but she did not tolerate Lipitor ( muscle weakness ). 6. Increase activity as able. 7. I have no further neurologic recommendations to make at this time and I can follow her as an outpatient. Overall I spent a total of 60 minutes with this case including review of records, review of CT films, direct evaluation the patient's bedside, and discussion of the case with the patient at bedside, RN at bedside, and Dr. Montiel, including differential diagnosis and treatment options. History of Present Illness Reason for Consultation: Patient is a 75-year-old, who I was asked to see at the request of Dr. Dixon, for neurologic consultation regarding possible TIA versus stroke. Requesting Physician: Dr. Dixon Attending Physician: Alberto Montiel History of Present Illness patient has a history of some dyslipidemia and possible hypertension ( although she has not been treated for this). She tried Lipitor in the past but gave her muscle weakness. She was in her usual state of health when around November 01 she noted that after a day of shopping in the afternoon she suddenly got lightheaded. She had not had anything like this for many years ( decades ago she was told she had hypoglycemic episodes associated with some lightheadedness). She ate and rested but the lightheadedness state. It was intense sensation as if she was going to faint but she never did. She did not have vertigo, tinnitus, or ear Pain. There were no associated headaches, weakness, or numbness. She really did not feel any difference between sitting or standing. There were some sensations of feeling "foggy" with her thinking associated with the lightheadedness which was always present but may have waxed and waned a little. On November 06 she received an allergy shot as usual which made no change in condition. By November 08 she noted some weakness in the left foot. This gave her a sensation like her foot was slipping when she walked although she did not actually slipped. There was no numbness or pain in the lower extremity and she had no back pain or incontinence. The arms and right lower extremity were asymptomatic. This weakness feeling in her left leg extended up to the knee and did not resolve by November 09. She had a dull headache but no other significant symptoms including no vision changes, swallowing issues or significant memory problems. She arrived to the emergency room on November 09 at 1502, with a temperature of 36.8, pulse 80 and regular, respiratory rate 20, blood pressure 188/89 (mean arterial pressure 122), and O2 saturation 97 percent. On examination there was a little limp because of some 4/5 distal left leg strength. She had no other focal deficits. CBC and Chem profile were unremarkable. Urinalysis was unremarkable as well. Chest x-ray was unremarkable. CT scan of the head showed no acute changes. CT angiography of the head and neck revealed a tiny ( 1.3 millimeter) supraclinoid area outpouching consistent with a slight aneurysm. There was some atherosclerotic changes in her internal carotid arteries bilaterally but no significant stenoses. She was given aspirin in the emergency room. Overnight she was been normal sinus rhythm in the 70s. This morning CBC and Chem profile were unremarkable. Hemoglobin A1c was 5.5 and triglycerides were 114. Total cholesterol was 241. blood pressure this morning is 177/80 (mean arterial pressure of 112) She feels that her left lower extremity is strong now with no weakness. She has some slight lightheadedness only. Allergies Allergy/AdvReac Type Severity Reaction Status Date / Time adhesive tape Allergy Verified 11/09/20 18:53 codeine AdvReac Mild GI distress Verified 11/09/20 18:53 Home Medications Medication Instructions Recorded Confirmed Type albuterol sulfate 90 mcg/actuation 1 puffs INH Q6H PRN 03/16/19 11/09/20 History aerosol inhaler multivitamin 1 tab PO DAILY 03/16/19 11/09/20 History fluticasone propionate [Flonase 1 spray INTRANASAL 3XWK PRN 11/09/20 11/09/20 History Allergy Relief] lodoxamide tromethamine 1 drp OPB QID 11/09/20 11/09/20 History mometasone [Asmanex Twisthaler] 1 inh INHALATION DAILY 11/09/20 11/09/20 History Patient History Medical History (Updated 11/10/20 @ 08:07 by Blake Crawford MD) Angioma Fatigue Hyperlipidemia Left knee DJD Osteopenia Postinflammatory hyperpigmentation Solar lentigo Venous insufficiency Vitamin D deficiency Surgical History History of laparoscopic cholecystectomy S/P tonsillectomy as a child Family History Mother , age 72 COPD (chronic obstructive pulmonary disease) Breast cancer Father , age 89 Diabetes Hypertension Coronary heart disease Daughter Malignant melanoma of skin Malignant Melanoma Of The Skin Denies family history of Ovarian cancer Prostate cancer Myocardial infarction Colorectal cancer Social History Smoking Status: Never smoker Second Hand Exposure: Yes; Hx Alcohol Use: Yes Alcohol type: beer and wine Alcohol Intake Frequency Comment: will have 1 drink at dinner per day (Mostly wine but could be beer) Hx Substance Use: No Preferred Language: Kinyarwanda Communication Ability: Effective Visual Impairment: Partially Limited Hearing Ability: Normal Beliefs That Will Affect Care: None marital status: Current Living Situation: Spouse Current Living Situation Comment: , independent at home current occupational status: other current occupation: tax collector How many Children do You have: 2 How many Children do You have Comment: 1 boy 1 girl Other Information That Helps Us Care for You: No Feels Safe at Home: Yes Safety Concerns: Feels Safe At This Time Childhood Exposure to Second-Hand Smoke: Yes during the past year weight has: remained stable Dental Care, Regularly: Yes Physical Activity Frequency: 5-6 Times per Week Seatbelt Use: always Sunscreen Use: Yes Assistive Devices: None Review of Systems Constitutional: no fever, no fatigue and no weakness general sense of lightheadedness of a mild nature. Eyes: no diplopia, no eye pain and no worsening vision Ear, Nose, Mouth, Throat: no ear pain, no tinnitus, no hearing loss, no dizziness, no hoarseness and no dysphagia Respiratory: no cough and no dyspnea Cardiovascular: no chest pain, no palpitations and no lightheadedness Gastrointestinal: no abdominal pain, no nausea and no vomiting Genitourinary: no dysuria, no urinary frequency and no urinary incontinence Musculoskeletal: no back pain, no neck pain, no radicular pain, no joint pain and no myalgia Integumentary: no rash and no lesions Neurologic: no gait abnormality, no localized weakness, no generalized weakness, no tingling, no numbness, no tremor(s), no abnormal movements, no headache(s), no abnormal speech, no confusion and no memory loss Psychiatric: no depression, no irritability, no anxiety, no difficulty concentrating, no confusion and no hallucinations Endocrine: no fatigue and no flushing Hematologic / Lymphatic: no easy bleeding and no easy bruising Allergy / Immunological: no urticaria and no problem reported Exam (Neuro) Physical Exam: The patient is right-handed. The patient is awake, alert, and attentive. Speech is normal without any aphasia or dysarthria. She can name objects, repeat phrases, and has normal spontaneous speech. Mentation and thought processes are intact, with orientation to person, place and time, and normal fund of knowledge. Attention and concentration are normal. Mood and affect are normal and appropriate. General appearance and grooming are normal. Short and long-term memory are intact. Pupils are 4 mm bilaterally and reactive to light. Extraocular eye muscles are intact without nystagmus. Visual acuity and visual freire seem normal grossly to confrontation. There are no deficits to sensation in the face in all 3 distributions of the fifth cranial nerve bilaterally. Corneal reflexes are positive bilaterally. Facial strength and symmetry was normal bilaterally. Hearing seems normal to whisper and finger rub bilaterally. Palate moves well without asymmetry. There is normal sternocleidomastoid and trapezius (shoulder shrug) strength bi laterally. Tongue is midline with good strength bilaterally. Neck has a full range of motion without discomfort. There are no cervical bruits bilaterally. There are no cranial or ocular bruits. Heart is without murmur. There is a regular rhythm and rate. Cervical, thoracic, and lumbar spine are nontender to palpation. Gait is narrow based, with good arm swing, turns, and stance. With outstretched arms there is no drift. There are no resting, postural, or action tremors. There is no ataxia with finger to nose testing. There is good facility in the hands. No other abnormal involuntary movements are noted. Motor strength is 5/5 diffusely in the arms bilaterally including deltoids, biceps, triceps, brachioradialis, wrist flexors and extensors, enterprise resource planner, and intrinsic hand muscles. Motor strength is 5/5 diffusely in the legs bilaterally including hip flexors, quadriceps, hamstrings, gastrocnemius, tibialis anterior, tibialis posterior, and Peroneii muscles. Toe extensors are normal and there is good bulk in the extensor digitorum brevis muscles bilaterally. I cannot find any focal weakness in the left lower extremity. The limbs have good tone without rigidity or spasticity. There is no atrophy noted in the muscles. Muscle bulk is normal, there is no tenderness to palpation, no myotonia to percussion, and no fasciculations seen. Sensory examination is intact to touch and pin throughout all 4 limbs diffusely. Reflexes are 1/4 in the biceps, triceps, brachioradialis, quadriceps, and Achilles tendons bilaterally. There is no clonus bilaterally. Toes are downgoing with plantar stimulation bilaterally. Peripheral pulses are present and of normal quality distally in all 4 limbs. There is no peripheral edema noted in the limbs. Results & Data ([facility]) Vital Signs (Past 12 Hours) Vital Signs Temp Pulse Pulse Pulse Resp BP BP 11/10/20 07:11 67 11/10/20 06:50 36.6 C 69 18 177/80 H 11/10/20 04:00 36.7 C 92 H 18 142/69 H 11/10/20 00:00 75 11/09/20 23:00 36.8 C 74 18 146/70 H 11/09/20 21:12 36.8 C 74 20 173/84 H 11/09/20 20:22 85 20 155/73 H Pulse Ox Pulse Ox 11/10/20 07:11 11/10/20 06:50 94 11/10/20 04:00 90 11/10/20 00:00 11/09/20 23:00 93 11/09/20 21:12 95 95 11/09/20 20:22 98 PG Care Time/CCT Total # of Minutes Spent Total Time Spent with Patient: Total time spent is greater than 50% in coordination of care (as documented) at patient's floor/unit and/or counseling patient: Coding Level of Care Code 86310 OBS Care - Level 3 Diagnoses Transient weakness of left lower extremity R29.898 Near syncope R55 Hypertension I10 Hyperlipidemia E78.5 Time Spent (min) 60
[2020-11-10] MEDS: ATORVASTATIN 40 MG TAB PO SCH (08:36)
[2020-11-10] MEDS ORDERED: MULTIVITAMIN TAB PO SCH (09:00)
[2020-11-10] MEDS ORDERED: FLUTICASONE FUROATE 100MCG 14 PUFFS/INHALER INH SCH (09:00)
[2020-11-10] MEDS ORDERED: ASPIRIN 81 MG ECTAB PO SCH (09:00)
--- NOTE | 2020-11-10 12:33 | Magnetic Resonance Report ---
Brain MRI WITHOUT CONTRAST HISTORY: Left lower extremity weakness. TECHNIQUE: Multiplanar multisequence MRI of the brain was performed without the use of contrast. COMPARISON STUDY: Head CT 11/09/2020. FINDINGS: There is a 5 mm focus of restricted diffusion seen within the periventricular white matter of the right parietal lobe on image 6. This consistent with a small acute infarct. The midline struct ures are intact. The paranasal sinuses and mastoid air cells are clear. The major vascular flow-voids at the skull base are well-maintained. Ventricles and sulci demonstrate mild age-related involutiona l changes. There is no mass, hematoma, midline shift. There are few scattered punctate foci of T2 hyp erintensity seen within the periventricular white matter. These are nonspecific but suggestive of mil d microvascular ischemic change. IMPRESSION: An acute punctate infarct within the periventricular white matter of the right parietal lobe. ACT 112: Negative or not required by law. Electronically signed by: Andrea Anderson M.D. 11/10/2020 12:32 PM
--- NOTE | 2020-11-10 14:20 | Communication Note ---
Date of Service: November 10, 2020 Patient is not a candidate for statins due to myalgia and inability to tolerate them
[2020-11-10] MEDS ORDERED: STROKE PATIENT DISCHARGE STA (14:28)
--- NOTE | 2020-11-10 15:08 | Pharmacy Report ---
Pharmacist Stroke Counseling - Date of Service November 10, 2020 - Scope: Pharmacy has been consulted to provide medication discharge counseling for this patient admitted with transient ischemic attack as per the Pharmacist Discharge Counseling for Stroke Patients Protocol. - Medications on Discharge: Home Medications Medication Instructions Recorded Confirmed albuterol sulfate 90 mcg/actuation 1 puffs INH Q6H PRN 03/16/19 11/09/20 aerosol inhaler multivitamin 1 tab PO DAILY 03/16/19 11/09/20 fluticasone propionate [Flonase 1 spray INTRANASAL 3XWK PRN 11/09/20 11/09/20 Allergy Relief] lodoxamide tromethamine 1 drp OPB QID 11/09/20 11/09/20 mometasone [Asmanex Twisthaler] 1 inh INHALATION DAILY 11/09/20 11/09/20 New Rx's Medication Instructions Recorded aspirin 81 mg PO QAM #30 tab 11/10/20 lisinopril 2.5 mg PO PM #30 tab 11/10/20 - Action: The above medications, specifically ones for stroke treatment/prophylaxis, have been reviewed in detail with the patient and/or patient direct customer service representative(s) prior to discharge. This includes indication, common adverse reactions, drug interactions, and medication administration. Medication counseling has been employed using the teach-back method to ensure understanding. - Outcome: The patient and/or patient direct customer service representative(s) have demonstrated understanding of the medications. Additional comments: [] Thank you for allowing pharmacy to be involved in the care of this patient. Please call [phone] with any additional questions
--- NOTE | 2020-11-16 08:35 | Discharge Summary ---
Date of Service November 10, 2020 Admission HPI Per Admitting Provider The patient is a 75-year-old female with a past medical history including left knee DJD, extrinsic asthma, allergic rhinitis, angioma, hyperlipidemia, osteopenia, solar lentigo, venous insufficiency, vitamin D deficiency and broken left foot x3. She reports her symptoms initially began on November 01 where she initially woke up had a light breakfast, was busy, and then around 2:30 in the afternoon she became lightheadedness and felt she almost would pass out she barely made it home. The symptoms decreased somewhat on November 02, but were still present somewhat at that time. On November 08 the patient had a return of dizziness and lightheadedness, but this time it became more constant. It was on this date that she also the first time experienced left lower extremity sensation of gliding, and a sense of feeling of floating. She reports her symptoms have improved somewhat today, 11/09, but has felt lightheaded all day. On 11/08, she did get allergy shots in both arms, and her symptoms did worsen significantly shortl y after that. She presents to the emergency department today, at the referral from her PCPs office. Principal Diagnosis Acute ischemic stroke of right parietal lobe Discharge Exam The patient is awake, alert and oriented 3, well developed and well nourished, normocephalic and atraumatic, lying in bed and in no acute distress. HEENT--PERRL, EOMI, mucous membranes and oropharynx normal. Neck--supple. No JVD. No bruits. Thyroid normal, trachea midline, no adenopathy. Heart--normal S1 and S2. No murmurs, rubs or gallops. Lungs--clear bilaterally, no respiratory distress, no accessory muscle use. Abdomen--normal bowel sounds and soft. Nontender. Nondistended, no hernias or masses, no organomegaly. Extremities--no cyanosis or clubbing. No edema. There are good distal pulses b/l. Dermatologic--normal skin turgor, normal color, no abnormal lymph nodes, no rash. Neurologic--cranial nerves II through XII grossly intact. Rheumatologic--normal range of motion. Psychiatric--normal affect. Discharge Data Allergies Allergy/AdvReac Type Severity Reaction Status Date / Time adhesive tape Allergy Verified 11/09/20 18:53 codeine AdvReac Mild GI distress Verified 11/09/20 18:53 Consultations 11/09/20 18:09 ED Decision to Admit Stat 11/09/20 21:12 Consult Neurology Routine Ordered Studies 11/09/20 16:18 CT angio head w con Stat CT angio neck with con Stat CT head/brain wo con Stat 11/10/20 08:00 MR brain wo con Routine Hospital Course (1) Transient weakness of left lower extremity: Acute ischemic stroke of right parietal lobe Physical examination normal in the emergency department this evening. 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 MRI brain without contrast Consult PT/OT/neurology On discharge: Patient is not a candidate for statins due to myalgia and inability to tolerate them Appreciate input from Neuro: Patient had some transient weakness of the left lower extremity distally starting November 08 seen November 09 in the emergency room. She does not have this currently and is quite strong. Overall, I cannot exclude a small stroke , but this is consistent with a TIA. Her risk factors for small vessel ischemic disease include hypertension, dyslipidemia, and age / genetics Recommendations: 1. continue 81 milligram aspirin tablet daily to prevent small vessel ischemic disease 2. MRI completed: An acute punctate infarct within the periventricular white matter of the right parietal lobe. 3. Echocardiogram completed 4. Treat blood pressure to control for a mean arterial pressure of approximately 95-100. 5. The patient would be a statin candidate but she did not tolerate Lipitor ( muscle weakness ). 6. Increase activity as able. D/W Neuro: continue aspirin at this time. And added low dose lisinopril. Will discuss with PCP if she may consider low intensity statins. (2) Near syncope: Near syncope/history of hypoglycemia patient's initial symptoms on November 01 where she nearly passed out, where after a long time since she had breakfast, and most likely hypoglycemia related. (3) Aneurysm, cerebral: Follow on routine testing. (4) Extrinsic asthma: Extrinsic asthma/allergic rhinitis- Continue usual medications of Flonase allergy relief and Asmanex Twisthaler Hold as needed albuterol HFA (5) Allergic rhinitis: See above (6) Chronic venous insufficiency: By her history, chronic venous insufficiency has been worsened on her left side due to history of 3 previous mechanical left foot fractures. She denies any back pain or back injuries. Her symptoms of left lower extremity abnormal sensation or feeling of floating may be more of a local process if MRI brain is normal. Patient has recently undergone procedures to treat venous insufficiency via vascular surgery intervention Total Time Total Time Spent Total Time Spent (In Minutes): 32 Total Time Includes: Examination of the Patient, Discharge Planning, Medication Reconciliation and Communication With Other Providers Discharge Plan Discharge Items Patient Disposition: Home - Self-Care Reason For Visit: LLE WEAKNESS,LIGHTHEADED Discharge Diagnosis: Acute ischemic stroke Activity: Resume your previous activity Non-emergency contact: Primary Care Provider Call non-emergency contact if: you have any medication questions Follow-up/Referrals: Torey López MD [Primary Care Provider] - Diet: Heart Healthy Addtl Attending Provider Instructions: Followup with PCP in 1-2 weeks. Risk Factors for Stroke: You can reduce your chances of stroke by working with your medical provider to adopt a healthy lifestyle. Some specific ways to lower your chance of stroke are: * If you are a smoker, now is the time to stop smoking cigarettes * If you are diabetic, improve the control of your blood sugars * Avoid excessive amounts of alcohol * Control high blood pressure * Lose weight if you are overweight * Be sure to lead an active lifestyle * Eat a healthy diet low in salt, cholesterol and fat You should know about other risk factors for stroke that you are unable to control. These include: * Age 55 years or older * Male gender * Certain racial groups: , or / * Family History of Stroke, Mini stroke or Heart Attack * Sickle Cell Disease Follow Up: It is important for you to keep your follow up appointments with your medical devon hartman. Who to Call and When: Medical Emergencies: Call 911 immediately if you experience any of the following warning signs and symptoms of Stroke: * Sudden numbness or weakness of the face, arm or leg, especially on one side of the body * Sudden confusion, trouble speaking or understanding * Sudden trouble seeing in one or both eyes * Sudden trouble walking, dizziness, loss of balance or coordination * Sudden severe headache with no cause Do not delay calling 911 if you experience any warning signs or symptoms of a stroke. Delay in seeking medical attention may affect what treatments can be given to you. . Pending Studies at Discharge: No Stand-Alone Forms: Medications to Prevent Stroke, My [facility], Smoking Cessation Medications and DC Order Prescriptions: New aspirin 81 mg Tablet,Delayed Release (Dr/Ec) 81 mg PO QAM Qty: 30 RF: 0 lisinopril 2.5 mg tablet 2.5 mg PO PM Qty: 30 RF: 0 Continued multivitamin [Daily Multi-Vitamin] tablet 1 tab PO DAILY RF: 0 albuterol sulfate [Ventolin HFA] 90 mcg/actuation HFA aerosol inhaler 1 puffs INH Q6H PRN (Reason: Shortness Of Breath Or Wheezing) RF: 0 lodoxamide tromethamine 0.1 % drops 1 drp OPB QID RF: 0 Asmanex Twisthaler 220 mcg/ actuation (30) aerosol powdr breath activated 1 inh INHALATION DAILY RF: 0 fluticasone propionate [Flonase Allergy Relief] 50 mcg/actuation Walling,Suspension 1 spray INTRANASAL 3XWK PRN (Reason: Congestion) RF: 0 Discharge Orders: Discharge Order (Routine); Ordered 11/10/20 Ordered By: Alberto Montiel Admission Data Admit Date/Time: 11/09/20 20:00 Attending Provider: Alberto Montiel Admit Provider: Juanito Dixon Primary Care Provider: Torey López Other Providers: Blake Crawford Other Interventions: Discharge Summary Assessment (RN) Last Done: 11/10/20 14:48 Coding Level of Care Code 41817 OBS Care - Discharge Diagnoses Transient weakness of left lower extremity R29.898 Near syncope R55 Aneurysm, cerebral I67.1 Extrinsic asthma J45.909 Allergic rhinitis J30.9 Chronic venous insufficiency I87.2
--- NOTE | 2020-12-03 13:45 | Coding Query ---
A supporting diagnosis is required for the test/procedure performed on this patient in order for us to be reimbursed by the patient's insurance. Please provide a supporting diagnosis for the following test/procedure listed below next to the test name along with your signature. *If there is no additional diagnosis for this patient that would support the following test/procedure please document that below next to the test/procedure. Test(s)/Procedure(s) that require a supporting diagnosis: * 16920 GLYCATED HEMOGLOBIN DIAGNOSIS: TIA DATE OF SERVICE: 11/10/20 Provider Signature: Date: Thank you Jhonny Taylor [facility] Information Management Once completed, please kindly fax back to [phone] For questions please call [phone] TETE
== END 2020-11-10 15:41 | disposition home or self-care (01) ==
LOC: ED 14:58 → 2N 14:58 → SUATTDRO 20:00 → 2N 20:50